=== PATIENT | male | born 1965 | race Two or more races ===

== ENCOUNTER 2022-08-11 04:23 | Day surgery (SDC) | payer BC, OTHER ==
[2022-08-05 15:19] VITALS: BMI 33.9
[2022-08-11 12:46] VITALS: RESP 16
[2022-08-11] MEDS ORDERED: PROPOFOL 20 ML ONE ×3 (14:39→15:51)
[2022-08-11] MEDS ORDERED: MIDAZOLAM HCL 2 MG/2 ML SINGLE DOSE VIAL ONE (14:39)
[2022-08-11] MEDS ORDERED: ceFAZolin SODIUM 1 GM VIAL ONE (14:40)
[2022-08-11] MEDS ORDERED: GLYCOPYRROLATE 0.2 MG/1 ML VIAL ONE (14:40)
[2022-08-11] MEDS ORDERED: SODIUM CHLORIDE 0.9% P/F 10 ML VIAL IJ ONE (14:40)
[2022-08-11] MEDS ORDERED: LIDOCAINE HCL/PF 2% SDV 5ML VIAL ONE (14:40)
[2022-08-11] MEDS ORDERED: ceFAZolin SODIUM 1 GM VIAL IVPB ONE (14:52)
[2022-08-11] MEDS ORDERED: DEXAMETHASONE SOD PHOSPHATE 4 MG/1 ML VIAL ONE (14:58)
[2022-08-11] MEDS ORDERED: ONDANSETRON 4 MG/2 ML VIAL ONE (14:58)
[2022-08-11] MEDS ORDERED: KETOROLAC TROMETHAMINE 30 MG/1 ML VIAL ONE (15:15)
[2022-08-11] MEDS ORDERED: BUPIVACAINE HCL/PF 0.5% (5MG/ML) 10 ML VIAL NR ONE (15:15)
[2022-08-11] MEDS ORDERED: LIDOCAINE HCL 1%, 10 MG/ML (20ML VIAL) NR ONE (15:15)
[2022-08-11] MEDS ORDERED: oxyCODONE HCL 5 MG TABLET PO PRN (16:30)
[2022-08-11] MEDS ORDERED: PROMETHAZINE HCL 25 MG/1 ML VIAL IVPB PRN (16:30)
[2022-08-11] MEDS ORDERED: ONDANSETRON 4 MG/2 ML VIAL IVPUSH PRN (16:30)
[2022-08-11] MEDS ORDERED: LACTATED RINGERS SOLUTION 1,000 ML IV SCH (16:30)
[2022-08-11 17:57] VITALS: BP 132/71; PULSE 82; TEMP 98
== END 2022-08-11 18:57 | disposition home or self-care (01) ==
LOC: JASU-SURG 04:23
PROVIDERS: ATTEND Surgery
PROC: 0YU60JZ Supplement Left Inguinal Region with Synthetic Substitute, Open Approach (ICD-10-PCS; principal; 2022-08-11 14:00)
DX: K40.90 Unilateral inguinal hernia, without obstruction or gangrene, not specified as recurrent (principal)
CPT/HCPCS: 88302-TC; 94760